=== PATIENT | male | born 1995 | race Caucasian/White ===

== ENCOUNTER 2018-07-10 20:05 | Emergency (ER) | payer OTHER ==
[~2018-07-10] VITALS: Ht 180.3 cm; Wt 75.0 kg
[2018-07-10 20:05] VITALS: BP 139/79
[2018-07-10] MEDS ORDERED: IBUP-1114 PO (21:47)
[2018-07-10] MEDS ORDERED: ACET1TAB55 PO (21:47)
[2018-07-10] MEDS ORDERED: IBUPROFEN 400 MG TAB PO ONE (22:00)
--- NOTE | 2018-07-11 01:17 | REP ---
Clinical: Trauma. Technique: AP, lateral, bilateral oblique views left second digit . Findings: The osseous structures and joint spaces are intact and normal. There is no evidence for acute fracture or dislocation. Surrounding soft tissues are unremarkable. No subcutaneous emphysema or radiodense foreign body. Impression: No acute fracture or dislocation. Electronically Signed by Aaron Solorzano MD 07/11/2018 01:09 A
== END 2018-07-10 22:02 | disposition home or self-care (01) ==
LOC: M ED 20:05
DX: S67.191A Crushing injury of left index finger, initial encounter (principal); W23.0XXA Caught, crushed, jammed, or pinched between moving objects, initial encounter; Y92.139 Unspecified place military base as the place of occurrence of the external cause; Y99.1 Military activity